=== PATIENT | male | born 1950 | race Caucasian/White ===

== ENCOUNTER 2018-03-12 07:34 | Emergency (ER) | payer MEDICAID, MEDICARE ==
[~2018-03-12] VITALS: Ht 177.8 cm; Wt 102.6 kg
[2018-03-12 07:36] VITALS: BP 164/94
[2018-03-12] MEDS ORDERED: KETOROLAC 30 MG/1 ML IM ONE (08:00)
[2018-03-12] MEDS ORDERED: METHOCARBAMOL 750 MG TABLET PO ONE (08:00)
[2018-03-12] MEDS ORDERED: PLEASE ENTER ALLERGIES MC SCH (08:30)
[2018-03-12] MEDS ORDERED: CEPHALEXIN 500 MG CAPSULE PO ONE (08:30)
[2018-03-12 08:37] LABS: BASOPHILS % (AUTO) 1 % (0-1); EOSINOPHILS # (AUTO) 0.23 x10^3/uL (0-0.4); EOSINOPHILS % (AUTO) 3 % (1-7); LYMPHOCYTES # (AUTO) 3.12 x10^3/uL (1-3.4); LYMPHOCYTES % (AUTO) 38 % (22-44); MD NO; MEAN CORPUSCULAR VOLUME 91.2 fL (81-97); MEAN PLATELET VOLUME 6.7 fL (7.4-10.4); MONOCYTES # (AUTO) 0.62 x10^3/uL (0.2-0.8); MONOCYTES % (AUTO) 8 % (2-9); NEUTROPHILS # (AUTO) 4.13 x10^3/uL (1.8-6.8); NEUTROPHILS % (AUTO) 50 % (42-75); PLATELET COUNT 419 x10^3/uL (130-400); RED BLOOD COUNT 4.51 x10^6/uL (4.38-5.82); RED CELL DISTRIBUTION WIDTH 15.4 % (9.4-14.8)
[2018-03-12 08:49] LABS: ALBUMIN 3.4 g/dL (3.4-5.0); ANION GAP 8 mmol/L (5-15); CALCIUM 8.2 mg/dL (8.5-10.1); CHLORIDE 108 mmol/L (98-107); CREATININE 1.47 mg/dL (0.7-1.3)
[2018-03-12] MEDS ORDERED: CEPHALEXIN 500 MG CAPSULE ONE (09:07)
[2018-03-12] MEDS ORDERED: KETOROLAC 30 MG/1 ML ONE (09:07)
[2018-03-12] MEDS ORDERED: METHOCARBAMOL 750 MG TABLET ONE (09:07)
== END 2018-03-12 09:43 | disposition home or self-care (01) ==
LOC: ED 09:20
DX: M54.2 Cervicalgia (principal); H60.12 Cellulitis of left external ear
CPT/HCPCS: 36415; 72050; 80048; 82040; 85025; 96372; 99285; J1885

== ENCOUNTER 2020-12-11 20:32 | Emergency (ER) | payer SELFPAY | END 2020-12-11 21:04 | LOC: ED 20:35 | DX: R10.30 Lower abdominal pain, unspecified (principal); Z53.21 Procedure and treatment not carried out due to patient leaving prior to being seen by health care provider ==

== ENCOUNTER 2020-12-12 03:19 | Emergency (ER) | payer OTHER, MEDICAID ==
[~2020-12-12] VITALS: Ht 177.8 cm; Wt 114.0 kg
--- NOTE | 2020-12-12 03:50 | NUR ---
Patient presents to ER c/o periumbilical pain due to a hernia. Patient has a hx of same and has had a previous surgery for same. Patient is scheduled to have another surgery for the hernia on the 15 but the pain is increasing. Denies any home meds. Patient is in NAD. Respirations even and unlabored.
[2020-12-12] MEDS ORDERED: KETOROLAC 30 MG/1 ML IM ONE (04:00)
[2020-12-12] MEDS ORDERED: KETOROLAC 30 MG/1 ML ONE (04:08)
[2020-12-12 04:10] VITALS: BP 145/89
== END 2020-12-12 04:18 | disposition home or self-care (01) ==
LOC: ED 04:05
DX: K43.2 Incisional hernia without obstruction or gangrene (principal); M54.2 Cervicalgia; G89.29 Other chronic pain; R06.02 Shortness of breath
CPT/HCPCS: 96372; 99283; J1885

== ENCOUNTER 2021-02-20 15:22 | Inpatient (IN) | payer OTHER ==
[~2021-02-20] VITALS: Ht 177.8 cm; Wt 109.0 kg
--- NOTE | 2021-02-20 15:25 | NUR ---
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 TRIAGE PROGRESSED WENT UP TO AND MAINTAINED 90-91%. PT PLACED ON 2L NC FOR SAFETY.
[2021-02-20 16:02] LABS: BASOPHILS % (AUTO) 1 % (0-1); EOSINOPHILS % (AUTO) 0 % (1-7); LYMPHOCYTES % (AUTO) 17 % (22-44); MEAN CORPUSCULAR HEMOGLOBIN 30.7 pg (27.5-34.5); MEAN CORPUSCULAR HGB CONC 34.2 g/dL (33.2-36.2); MEAN PLATELET VOLUME 7.1 fL (7.4-10.4); MONOCYTES % (AUTO) 10 % (2-9); NEUTROPHILS % (AUTO) 72 % (42-75); PLATELET COUNT 303 x10^3/uL (130-400); RED BLOOD COUNT 5.39 x10^6/uL (4.38-5.82); RED CELL DISTRIBUTION WIDTH 15.2 % (9.4-14.8)
[2021-02-20 16:12] LABS: ALBUMIN 2.1 g/dL (3.4-5.0); ANION GAP 13 mmol/L (5-15); CHLORIDE 94 mmol/L (98-107)
[2021-02-20 16:19] LABS: ALANINE AMINOTRANSFERASE 21 U/L (12-78); ALKALINE PHOSPHATASE 61 U/L (45-117); CREATININE 2.23 mg/dL (0.7-1.3); TOTAL PROTEIN 7.5 g/dL (6.4-8.2); TROPONIN I < 0.015 ng/mL (0.000-0.045)
--- NOTE | 2021-02-20 19:18 | NUR ---
TASK RN: [facility] RECHECK[facility] AIR SAT 83% RA. PT REQUIRING 5L NC TO MAINTAIN SAT 92%. THIS IS A 70 YO M W/ C/O FATIGUE, SOB X1-2 WEEKS. NO COVID VACCINE. PT DENIES HOME MEDS. ONLY HX IS HERNIA SX. RESTING ON [place] W/ CALL LIGHT IN REACH AND SIDE RAILS UPX2. NADN. AT BEDSIDE.
--- NOTE | 2021-02-20 19:38 | NUR ---
PT. IS A & O X 4 WITH A [facility] OF 14 WITH C/O INCREASING FATIGUE AND SOB X A FEW WEEKS. AFTER EVALUATION PT. WAS FOUND TO HAVE A BILAT PNEUMONIA. PT. IS PINK, WARM AND DRY. LUNGS ARE DIMINISHED IN THE BASES. PT.'S SATS ARE 95% ON 4 L O2 PER NASAL CANNULA. PT. DENIES C/O PAIN. CP MONITOR IS IN PLACE AND HE IS IN A SINUS RHYTHM AT 76. S1 S2 NOTED WITHOUT MURMURS, RUBS OR GALLOPS. PT.'S ABD. IS SOFT AND ROUND WITH BS + X 4 QUADS. IV ACCESS ESTABLISHED AND THE PT. WAS MEDICATED PER MD ORDERS. VSS. SIDERAILS REMAIN UP X [address] WITH THE CALL LIGHT IN PLACE.
[2021-02-20] MEDS ORDERED: DEXAMETHASONE 4 MG/ML, 1ML ONE ×2 (19:50→19:59)
[2021-02-20] MEDS ORDERED: SODIUM CHLORIDE FLUSH 10ML SYR IVF PRN (20:00)
[2021-02-20] MEDS ORDERED: DEXAMETHASONE 4 MG/ML, 5ML IVPush ONE (20:30)
[2021-02-20] MEDS ORDERED: AZITHROMYCIN 500 MG in SODIUM CHLORIDE 0.9% 250 ML IV ONE (20:30)
--- NOTE | 2021-02-20 20:51 | NUR ---
BEDSIDE REPORT FROM CORI RN, PT CARE TRANSFERRED AT THIS TIME.
--- NOTE | 2021-02-20 20:53 | NUR ---
TASK RN: REPORT CALLED TO FLOOR.
[2021-02-20 21:15] VITALS: BP 115/70
[2021-02-20] MEDS ORDERED: ACETAMINOPHEN 650 MG SUPP PR PRN (21:30)
[2021-02-20] MEDS ORDERED: hydrALAzine 20 MG/ML, 1ML IVPush PRN (21:30)
[2021-02-20] MEDS ORDERED: PHARMACY MAY ADJ FOR RENAL FX MC PRN (21:30)
[2021-02-20] MEDS ORDERED: ENOXAPARIN 100 MG/ML SQ SCH (21:30)
[2021-02-20] MEDS ORDERED: CEFTRIAXONE 1,000 MG in DEXTROSE 5% 50 ML IVPB SCH (21:30)
[2021-02-20] MEDS ORDERED: morphine SULFATE 10 MG/ML, 1ML IVPush PRN (21:30)
[2021-02-20] MEDS ORDERED: SODIUM CHLORIDE 0.9% 1,000ML IVBOLUS ONE (21:30)
[2021-02-20] MEDS ORDERED: ONDANSETRON 2MG/ML, 2ML IVPush PRN (21:30)
[2021-02-21 00:59] VITALS: BP 105/61
[2021-02-21 07:44] LABS: BASOPHILS % (AUTO) 1 % (0-1); EOSINOPHILS % (AUTO) 0 % (1-7); LYMPHOCYTES % (AUTO) 31 % (22-44); MEAN CORPUSCULAR HEMOGLOBIN 30.3 pg (27.5-34.5); MEAN CORPUSCULAR HGB CONC 33.8 g/dL (33.2-36.2); MEAN PLATELET VOLUME 7.3 fL (7.4-10.4); MONOCYTES % (AUTO) 13 % (2-9); NEUTROPHILS % (AUTO) 55 % (42-75); PLATELET COUNT 318 x10^3/uL (130-400); RED BLOOD COUNT 5.11 x10^6/uL (4.38-5.82); RED CELL DISTRIBUTION WIDTH 15.2 % (9.4-14.8)
[2021-02-21 07:56] LABS: ALANINE AMINOTRANSFERASE 19 U/L (12-78); ANION GAP 8 mmol/L (5-15); CALCIUM 8.1 mg/dL (8.5-10.1); CHLORIDE 101 mmol/L (98-107); CREATININE 1.66 mg/dL (0.7-1.3)
[2021-02-21 08:00] VITALS: BP 106/62
[2021-02-21 08:02] LABS: ALKALINE PHOSPHATASE 60 U/L (45-117); BILIRUBIN,TOTAL 0.6 mg/dL (0.2-1.0); CREATINE KINASE, TOTAL 163 U/L (39-308); TOTAL PROTEIN 7.2 g/dL (6.4-8.2)
[2021-02-21 08:50] LABS: HCT (SEDRATE) 45.9 % (39.2-51.8)
[2021-02-21] MEDS: ASCORBIC ACID 500 MG TABLET PO SCH ×2 (08:57→20:04)
[2021-02-21] MEDS: ZINC SULFATE 220 MG CAPSULE PO SCH (08:57)
[2021-02-21] MEDS: FLUTICASONE/VILANTEROL 100-25MCG/INH INH SCH (08:58)
[2021-02-21] MEDS ORDERED: REMDESIVIR 200 MG in SODIUM CHLORIDE 0.9% 250 ML IVPB ONE (11:30)
[2021-02-21] MEDS: HEPARIN 5,000 UNITS/ML, 1ML SQ SCH ×2 (11:56→20:05)
[2021-02-21 14:00] VITALS: BP 106/62
[2021-02-21 20:03] VITALS: BP 117/70
[2021-02-21] MEDS: CEFTRIAXONE 2,000 MG in DEXTROSE 5% 50 ML IVPB SCH (21:08)
[2021-02-22 03:16] VITALS: BP 105/61
[2021-02-22] MEDS: HEPARIN 5,000 UNITS/ML, 1ML SQ SCH ×3 (03:19→21:04)
[2021-02-22 07:10] LABS: BASOPHILS % (AUTO) 0 % (0-1); EOSINOPHILS % (AUTO) 0 % (1-7); LYMPHOCYTES % (AUTO) 20 % (22-44); MEAN CORPUSCULAR HEMOGLOBIN 30.6 pg (27.5-34.5); MEAN CORPUSCULAR HGB CONC 34.1 g/dL (33.2-36.2); MEAN PLATELET VOLUME 7.6 fL (7.4-10.4); MONOCYTES % (AUTO) 12 % (2-9); NEUTROPHILS % (AUTO) 68 % (42-75); PLATELET COUNT 381 x10^3/uL (130-400); RED BLOOD COUNT 4.96 x10^6/uL (4.38-5.82); RED CELL DISTRIBUTION WIDTH 14.9 % (9.4-14.8)
[2021-02-22 07:11] LABS: HCT (SEDRATE) 44.1 % (39.2-51.8)
[2021-02-22 07:21] LABS: CHLORIDE 106 mmol/L (98-107)
[2021-02-22 07:35] LABS: ALANINE AMINOTRANSFERASE 16 U/L (12-78); ALBUMIN 1.9 g/dL (3.4-5.0); ALKALINE PHOSPHATASE 50 U/L (45-117); ANION GAP 9 mmol/L (5-15); BILIRUBIN,TOTAL 0.3 mg/dL (0.2-1.0); CALCIUM 8.5 mg/dL (8.5-10.1); CREATINE KINASE, TOTAL 87 U/L (39-308); CREATININE 1.15 mg/dL (0.7-1.3); TOTAL PROTEIN 6.6 g/dL (6.4-8.2)
[2021-02-22 07:46] LABS: D-DIMER 0.75 ug/mlFEU (0.00-0.52); INTERNATIONAL NORMALIZED RATIO 1.01 (0.93-1.1); PARTIAL THROMBOPLASTIN TIME 29 Seconds (25-31); PROTHROMBIN TIME 10.8 Seconds (9.6-11.5)
[2021-02-22 07:49] LABS: FIBRINOGEN > 713 mg/dL (200-340)
[2021-02-22 07:53] VITALS: BP 103/64
[2021-02-22] MEDS: ZINC SULFATE 220 MG CAPSULE PO SCH (08:55)
[2021-02-22] MEDS: ASCORBIC ACID 500 MG TABLET PO SCH ×2 (08:55→21:04)
[2021-02-22] MEDS ORDERED: DEXAMETHASONE 4 MG/ML, 1ML IVPush ONE (09:00)
[2021-02-22] MEDS: FLUTICASONE/VILANTEROL 100-25MCG/INH INH SCH (10:05)
[2021-02-22 13:55] VITALS: BP 130/72
[2021-02-22] MEDS: REMDESIVIR 100 MG in SODIUM CHLORIDE 0.9% 250 ML IVPB SCH (14:32)
[2021-02-22 19:55] VITALS: BP 130/77
[2021-02-22] MEDS: CEFTRIAXONE 2,000 MG in DEXTROSE 5% 50 ML IVPB SCH (21:04)
[2021-02-23 01:42] VITALS: BP 124/71
[2021-02-23] MEDS: HEPARIN 5,000 UNITS/ML, 1ML SQ SCH ×3 (05:13→20:55)
[2021-02-23 05:55] LABS: HCT (SEDRATE) 41.1 % (39.2-51.8)
[2021-02-23 06:03] LABS: BASOPHILS % (AUTO) 0 % (0-1); EOSINOPHILS % (AUTO) 0 % (1-7); LYMPHOCYTES % (AUTO) 16 % (22-44); MEAN CORPUSCULAR HEMOGLOBIN 30.3 pg (27.5-34.5); MEAN CORPUSCULAR HGB CONC 33.5 g/dL (33.2-36.2); MEAN PLATELET VOLUME 7.1 fL (7.4-10.4); MONOCYTES % (AUTO) 8 % (2-9); NEUTROPHILS % (AUTO) 75 % (42-75); PLATELET COUNT 444 x10^3/uL (130-400); RED BLOOD COUNT 4.55 x10^6/uL (4.38-5.82); RED CELL DISTRIBUTION WIDTH 15.1 % (9.4-14.8)
[2021-02-23 06:06] LABS: CHLORIDE 107 mmol/L (98-107)
[2021-02-23 06:28] LABS: ALANINE AMINOTRANSFERASE 16 U/L (12-78); ALBUMIN 1.6 g/dL (3.4-5.0); ALKALINE PHOSPHATASE 46 U/L (45-117); ANION GAP 7 mmol/L (5-15); BILIRUBIN,TOTAL 0.3 mg/dL (0.2-1.0); CREATINE KINASE, TOTAL 64 U/L (39-308); CREATININE 0.85 mg/dL (0.7-1.3); TOTAL PROTEIN 6.1 g/dL (6.4-8.2)
[2021-02-23] MEDS: FLUTICASONE/VILANTEROL 100-25MCG/INH INH SCH (08:26)
[2021-02-23] MEDS: ZINC SULFATE 220 MG CAPSULE PO SCH (08:27)
[2021-02-23] MEDS: DEXAMETHASONE 4 MG/ML, 1ML IVPush SCH (08:27)
[2021-02-23] MEDS: ASCORBIC ACID 500 MG TABLET PO SCH ×2 (08:27→20:56)
[2021-02-23 09:05] VITALS: BP 135/75
[2021-02-23] MEDS: REMDESIVIR 100 MG in SODIUM CHLORIDE 0.9% 250 ML IVPB SCH (13:46)
[2021-02-23 15:38] VITALS: BP 131/71
[2021-02-23 19:30] VITALS: BP 125/70
[2021-02-23] MEDS: CEFTRIAXONE 2,000 MG in DEXTROSE 5% 50 ML IVPB SCH (20:56)
[2021-02-24 00:24] VITALS: BP 132/73
[2021-02-24] MEDS: HEPARIN 5,000 UNITS/ML, 1ML SQ SCH ×3 (04:51→21:08)
[2021-02-24 07:11] LABS: BASOPHILS % (AUTO) 0 % (0-1); EOSINOPHILS % (AUTO) 1 % (1-7); LYMPHOCYTES % (AUTO) 16 % (22-44); MEAN CORPUSCULAR HEMOGLOBIN 30.2 pg (27.5-34.5); MEAN CORPUSCULAR HGB CONC 33.8 g/dL (33.2-36.2); MONOCYTES % (AUTO) 7 % (2-9); NEUTROPHILS % (AUTO) 76 % (42-75); PLATELET COUNT 488 x10^3/uL (130-400); RED BLOOD COUNT 4.67 x10^6/uL (4.38-5.82); RED CELL DISTRIBUTION WIDTH 15.5 % (9.4-14.8)
[2021-02-24 07:19] LABS: ALANINE AMINOTRANSFERASE 33 U/L (12-78); ALBUMIN 1.9 g/dL (3.4-5.0); ANION GAP 8 mmol/L (5-15); CALCIUM 7.8 mg/dL (8.5-10.1); CHLORIDE 101 mmol/L (98-107)
[2021-02-24 07:26] LABS: ALKALINE PHOSPHATASE 47 U/L (45-117); BILIRUBIN,TOTAL 0.4 mg/dL (0.2-1.0); CREATINE KINASE, TOTAL 58 U/L (39-308); CREATININE 0.75 mg/dL (0.7-1.3); TOTAL PROTEIN 6.4 g/dL (6.4-8.2)
[2021-02-24 07:27] LABS: D-DIMER 1.59 ug/mlFEU (0.00-0.52); INTERNATIONAL NORMALIZED RATIO 1.02 (0.93-1.1); PROTHROMBIN TIME 10.9 Seconds (9.6-11.5)
[2021-02-24] MEDS: ZINC SULFATE 220 MG CAPSULE PO SCH (08:26)
[2021-02-24] MEDS: ASCORBIC ACID 500 MG TABLET PO SCH ×2 (08:27→21:07)
[2021-02-24] MEDS: DEXAMETHASONE 4 MG/ML, 1ML IVPush SCH (08:33)
[2021-02-24 08:49] VITALS: BP 122/71
[2021-02-24 09:28] LABS: HCT (SEDRATE) 41.8 % (39.2-51.8)
[2021-02-24 12:33] VITALS: BP 122/64
[2021-02-24] MEDS: REMDESIVIR 100 MG in SODIUM CHLORIDE 0.9% 250 ML IVPB SCH (13:33)
[2021-02-24 18:49] VITALS: BP 142/76
[2021-02-24] MEDS: CEFTRIAXONE 2,000 MG in DEXTROSE 5% 50 ML IVPB SCH (21:07)
[2021-02-25 01:09] VITALS: BP 137/80
[2021-02-25] MEDS: HEPARIN 5,000 UNITS/ML, 1ML SQ SCH ×2 (05:00→12:33)
[2021-02-25 06:52] LABS: BASOPHILS % (AUTO) 1 % (0-1); EOSINOPHILS % (AUTO) 1 % (1-7); HCT (SEDRATE) 40.2 % (39.2-51.8); LYMPHOCYTES % (AUTO) 19 % (22-44); MEAN CORPUSCULAR HEMOGLOBIN 30.7 pg (27.5-34.5); MEAN CORPUSCULAR HGB CONC 34.3 g/dL (33.2-36.2); MEAN PLATELET VOLUME 6.9 fL (7.4-10.4); MONOCYTES % (AUTO) 7 % (2-9); NEUTROPHILS % (AUTO) 72 % (42-75); PLATELET COUNT 517 x10^3/uL (130-400); RED BLOOD COUNT 4.51 x10^6/uL (4.38-5.82); RED CELL DISTRIBUTION WIDTH 15.3 % (9.4-14.8)
[2021-02-25 06:53] LABS: CHLORIDE 102 mmol/L (98-107)
[2021-02-25 07:05] LABS: ALANINE AMINOTRANSFERASE 37 U/L (12-78); ALBUMIN 1.9 g/dL (3.4-5.0); ALKALINE PHOSPHATASE 45 U/L (45-117); ANION GAP 8 mmol/L (5-15); BILIRUBIN,TOTAL 0.3 mg/dL (0.2-1.0); CALCIUM 8.6 mg/dL (8.5-10.1); CREATINE KINASE, TOTAL 42 U/L (39-308); CREATININE 0.87 mg/dL (0.7-1.3); TOTAL PROTEIN 6.5 g/dL (6.4-8.2)
[2021-02-25] MEDS ORDERED: ASCO500T9 PO (07:29)
[2021-02-25] MEDS ORDERED: ZINC220C8 PO (07:29)
[2021-02-25] MEDS ORDERED: CHOL10003 PO (07:29)
[2021-02-25 09:33] VITALS: BP 137/70
[2021-02-25] MEDS: ASCORBIC ACID 500 MG TABLET PO SCH (10:09)
[2021-02-25] MEDS: DEXAMETHASONE 4 MG/ML, 1ML IVPush SCH (10:10)
[2021-02-25] MEDS: ZINC SULFATE 220 MG CAPSULE PO SCH (10:10)
[2021-02-25] MEDS: REMDESIVIR 100 MG in SODIUM CHLORIDE 0.9% 250 ML IVPB SCH (12:35)
== END 2021-02-25 14:25 | disposition home or self-care (01) | DRG 177 ==
LOC: ED 19:42 → EDIP 20:11 → 3N 21:43
PROVIDERS: ADMIT Internal Medicine; ATTEND Hospitalist
PROC: XW033E5 Introduction of Remdesivir Anti-infective into Peripheral Vein, Percutaneous Approach, New Technology Group 5 (ICD-10-PCS; principal; 2021-02-21)
DX: U07.1 COVID-19 (principal); J12.82 Pneumonia due to coronavirus disease 2019; J96.01 Acute respiratory failure with hypoxia; N17.9 Acute kidney failure, unspecified; K80.20 Calculus of gallbladder without cholecystitis without obstruction; R73.9 Hyperglycemia, unspecified; R73.03 Prediabetes
CPT/HCPCS: 36415; 71045; 71250; 80053; 82550; 82728; 83036; 83605; 83615; 83880; 84145; 84484; 85025; 85379; 85384; 85610; 85651; 85730; 86140; 87040; 93005; 96374; 96375; 99285; G0378; J0456; J0696; J1100; J1644; J1650; U0005; J7030; J7050; U0003